=== PATIENT | female | born 1955 | race American Indian/Alaskan Native ===

== ENCOUNTER 2017-10-28 14:01 | Outpatient (CLI) | payer BC ==
--- NOTE | 2017-10-29 09:58 | Mammography Report ---
BONE DEXA:10/28/17 14:30:00 CLINICAL: Postmenopausal. No comparison. TECHNIQUE: Two site bone DEXA performed on an Hologic scanner. FINDINGS: L1 BMD is 1.005g/cm squared with T score of -0.7 and Z score of +0.7. L2 BMD is 1.036g/cm squared with T score of -0.8 and Z score of +0.7. L3 BMD is 1.152g/cm squared with T score of -0.3 and Z score of +1.3. L4 BMD is 1.177g/cm squared with T score of +0.1 and Z score of +1.8. The average BMD of the lumbar spine L1-L4 is 1.108g/cm squared with T-score of -0.4 and Z-score of +1.2. The average BMD of the left hip is 0.877g/cm squared with a T-score of -1.0 and a Z-score of -0.2. The left femoral neck BMD is 0.728g/cm squared with a T score of -1.6 and a Z score of -0.5 IMPRESSION: 1. WHO classification: Normal with average fracture risk based on lumbar spine measurements. 2. WHO classification: Osteopenia with increased fracture risk based on left femoral neck measurements. RECOMMENDATION: Clinical correlation and routine screening. DEFINITIONS: BMD = Bone Mineral Density T-score = BMD related to mean peak bone mass of young adult (mean expressed in Standard Deviation) Z-score = Age matched BMD expressed in SD World Health Organization (WHO) Diagnostic Criteria Normal T-score > -1 SD Osteopenia T-score between -1 and -2.4 SD Osteoporosis T-score -2.5 SD or below NOTE: BMD is not the only risk factor for fracture. One should also consider factors such as the patient's age, risk of falling, previous osteoporotic fracture, family history of osteoporotic fractures, current smoker, and low body weight. Z-scores are not calculated if >80 years of age.
--- NOTE | 2017-10-29 13:30 | Mammography Report ---
BILATERAL DIGITAL SCREENING MAMMOGRAM with CAD: 10/28/17 14:01:00 CLINICAL: Routine screening. COMPARISON:06/05/16 FINDINGS: The breasts are mostly fatty with a few residual bilateral fibroglandular densities. A left benign intraparenchymal lymph node at 1 o'clock. A single large metal clip in the posterior inferior left breast at 5 o'clock. No mass, architectural distortion or suspicious calcifications. IMPRESSION: No mammographic evidence of malignancy. BI-RADS CATEGORY: 2 -- Benign RECOMMENDATION: Routine mammographic screening in one year. COMMENT: Patient follow-up letters are generated by our [employer] application.
== END 2017-10-28 14:02 | disposition home or self-care (01) ==
LOC: SPVWC 14:01
PROVIDERS: ATTEND Obstetrics & Gynecology
DX: Z12.31 Encounter for screening mammogram for malignant neoplasm of breast (principal); M85.88 Other specified disorders of bone density and structure, other site; Z78.0 Asymptomatic menopausal state
CPT/HCPCS: 77067; 77080